=== PATIENT | female | born 2000 | race Two or more races ===

== ENCOUNTER 2024-04-30 12:45 | Emergency (ER) | payer OTHER ==
[~2024-04-30] VITALS: Ht 172.7 cm; Wt 62.1 kg
[2024-04-30] MEDS ORDERED: ONDANSETRON HCL/PF 4 MG/2 ML VIAL ONE (13:05)
[2024-04-30] MEDS ORDERED: MORPHINE SULFATE INJ 4 MG/ML DISP.SYRIN ONE (13:05)
[2024-04-30] MEDS: IV NS 0.9% 1,000 ML BAG IV ONE (13:08)
[2024-04-30] MEDS: MORPHINE SULFATE INJ 2 MG/ML DISP.SYRIN IV ONE (13:09)
[2024-04-30] MEDS: ONDANSETRON HCL/PF 4 MG/2 ML VIAL IVP ONE (13:09)
[2024-04-30 13:17] LABS: BASOPHILS # (AUTO) 0.1 K/uL (0.0-0.2); BASOPHILS % (AUTO) 0.7 % (0.0-2.0); EOSINOPHILS # (AUTO) 0.2 K/uL (0.0-0.7); EOSINOPHILS % (AUTO) 2.8 % (0.0-6.0); HEMATOCRIT 39 % (33-45); LYMPHOCYTES # (AUTO) 2.8 K/uL (0.8-4.8); LYMPHOCYTES % (AUTO) 39.8 % (20.0-44.0); MEAN CORPUSCULAR HEMOGLOBIN 30 PG (26.0-33.0); MEAN CORPUSCULAR HGB CONC 34 g/dl (31.0-36.0); MEAN CORPUSCULAR VOLUME 90 fL (82-100); MONOCYTES # (AUTO) 0.5 K/uL (0.1-1.30); MONOCYTES % (AUTO) 7.4 % (2.0-12.0); NEUTROPHILS # (AUTO) 3.5 K/uL (1.8-8.9); NEUTROPHILS % (AUTO) 49.3 % (43.0-81.0); PLATELET COUNT (AUTO) 288 K/uL (150-450); RED BLOOD CELL COUNT(AUTO) 4.29 MIL/uL (4.0-5.2); RED CELL DISTRIBUTION WIDTH 13.2 % (11.5-15.0); WHITE BLOOD COUNT (AUTO) 7.1 K/uL (4.3-11.0)
[2024-04-30 13:19] LABS: APPEARANCE,URINE Clear (CLEAR); BILIRUBIN,URINE Negative (NEGATIVE); BLOOD, URINE Negative Ery/uL (NEGATIVE); COLOR,URINE YELLOW (YELLOW); KETONES,URINE Negative (NEGATIVE); LEUKOCYTE ESTERASE ,URINE Negative (NEGATIVE); NITRITE, URINE Negative (NEGATIVE); PROTEIN,URINE Negative (NEGATIVE); UGLUCOSE Negative (NEGATIVE); UROBILINOGEN,URINE 0.2 EU/dL (0.2)
[2024-04-30 13:25] LABS: CALCIUM, SERUM 8.6 mg/dL (8.5-10.1); CREATININE 0.7 mg/dL (0.6-1.3); POTASSIUM 3.2 mmol/L (3.5-5.1)
[2024-04-30] MEDS ORDERED: HYDROMORPHONE 1 MG/1 ML DISP.SYRIN ONE (13:28)
[2024-04-30 13:29] LABS: PREGNANCY TEST URINE QUAL NEGATIVE (NEGATIVE)
[2024-04-30] MEDS: HYDROMORPHONE INJ 2 MG/ML DISP.SYRIN IV ONE (13:34)
[2024-04-30 13:45] LABS: ALBUMIN 3.7 g/dL (3.4-5.0); BILIRUBIN,DIRECT 0.2 mg/dL (0.0-0.2); BILIRUBIN,TOTAL 0.9 mg/dL (0.2-1.0); TOTAL PROTEIN, SERUM 7.2 g/dL (6.4-8.2)
[2024-04-30] MEDS ORDERED: IV NS 0.9% 250 ML IV ONE (14:07)
[2024-04-30] MEDS ORDERED: IOHEXOL-300 100 ML VIAL IV ONE (14:07)
[2024-04-30] MEDS ORDERED: CT SWABBABLE VALVE TRANS SET 1 EA INFUS.SET MC ONE (14:08)
[2024-04-30] MEDS ORDERED: KETOROLAC TROMETHAMINE INJ 30 MG/ML VIAL ONE (14:23)
[2024-04-30] MEDS: KETOROLAC TROMETHAMINE 15 MG/ML VIAL IV ONE (14:24)
[2024-04-30] MEDS ORDERED: ONDANSETRON 4 MG TAB.RAPDIS ONE (16:33)
[2024-04-30] MEDS: ONDANSETRON 4 MG TAB.RAPDIS SL ONE (16:34)
[2024-04-30 17:01] VITALS: BP 106/74; TEMP 98; O2SAT 99
== END 2024-04-30 17:00 | disposition home or self-care (01) ==
LOC: ER 13:00
DX: N83.202 Unspecified ovarian cyst, left side (principal); R10.2 Pelvic and perineal pain; J45.909 Unspecified asthma, uncomplicated; Z88.1 Allergy status to other antibiotic agents
CPT/HCPCS: 99285; 74177; 96374; 96375; 76856; 96361; 85025; 80048; 83690; 80076; 84703; 81003; 36415; 84702; J2270; J1885; J2405; J7030; J7050; Q0162; Q9967; J1170